=== PATIENT | male | born 1955 | race Caucasian/White ===

== ENCOUNTER 2020-09-02 12:10 | Emergency (ER) | payer OTHER ==
[~2020-09-02] VITALS: Ht 185.4 cm; Wt 102.1 kg
[~2020-09-02 12:10] MED LIST: ANAPROX DS550 MG PO; ASPIRIN325 MG PO; CIPROFLOXACIN500 MG PO; FLAGYL500 MG PO; VICODIN 5/500 505 MG PO
[2020-09-02 12:22] VITALS: BP 154/41
[2020-09-02 12:43] LABS: BASO % 0.3 % (0.0-1.0); EOS # 0.1 10*3/uL (0.0-0.4); EOS % 0.9 % (1.0-4.0); HEMATOCRIT 39.3 % (42.0-52.0); LYMPH # 0.8 10*3/uL (1.3-4.4); LYMPH % 8.4 % (27.0-41.0); MEAN CELL VOLUME 84.3 fl (80.0-94.0); MEAN CORPUSCULAR HGB CONC 35.6 g/dl (33.0-37.0); MEAN PLATELET VOLUME 10.7 fl (9.6-12.3); MONO # 0.7 10*3/uL (0.1-1.0); MONO % 6.9 % (3.0-9.0); NEUT # 8.3 10*3/uL (2.3-7.9); PLATELET COUNT AUTOMATED 239 10*3/uL (130-400); RED BLOOD COUNT 4.66 10*6/uL (4.50-5.90); RED CELL DISTRI WIDTH 13.7 % (0-14.5)
[2020-09-02 13:02] LABS: ALBUMIN 3.5 gm/dl (3.1-4.5); ALKALINE PHOSPHATASE 122 U/L (45-117); BUN 15 mg/dl (7-24); CHLORIDE 111 mmol/L (98-107); CREATININE 0.75 mg/dL (0.70-1.30); SGOT/AST 17 IU/L (3-35); SGPT/ALT 28 U/L (12-78); SODIUM 138 mmol/L (136-145); TOTAL PROTEIN 7.2 gm/dL (6.4-8.2)
[2020-09-02 13:07] LABS: TROPONIN I < 0.015 ng/ml (<0.045)
[2020-09-02] MEDS ORDERED: HYDROCODONE-AC1 EAC1 PO (13:24)
== END 2020-09-02 13:28 | disposition home or self-care (01) ==
LOC: ED 12:10
PROVIDERS: Student in an Organized Health Care Education/Training Program
DX: M19.021 Primary osteoarthritis, right elbow (principal); I25.2 Old myocardial infarction; Z79.82 Long term (current) use of aspirin; Z79.899 Other long term (current) drug therapy; Z90.49 Acquired absence of other specified parts of digestive tract

== ENCOUNTER 2020-09-10 11:25 | Emergency (ER) | payer OTHER ==
[~2020-09-10] VITALS: Ht 185.4 cm; Wt 102.5 kg
[~2020-09-10 11:25] MED LIST changes: +HYDROCODONE-AC1 EAC1 PO
[2020-09-10 11:46] VITALS: BP 168/74
[2020-09-10] MEDS ORDERED: PREDNISONE10 MG PO (12:08)
[2020-09-10] MEDS ORDERED: HYDROCODONE-AC1 EAC1 PO (12:08)
== END 2020-09-10 12:15 | disposition home or self-care (01) ==
LOC: ED 11:25
DX: M79.601 Pain in right arm (principal); R20.2 Paresthesia of skin; R20.0 Anesthesia of skin; Z79.899 Other long term (current) drug therapy; Z79.82 Long term (current) use of aspirin; Z90.49 Acquired absence of other specified parts of digestive tract